=== PATIENT | female | born 1970 | race Caucasian/White ===

== ENCOUNTER → 2017-09-27 | Outpatient (CLI) | payer OTHER ==
[2017-09-27 19:42] LABS: Bilirubin, Urine Neg (Neg); Blood, Urine 1+ (Neg); Glucose Qualitative, Urine Neg (Neg); Ketones, Urine 1+ (Neg); Leukocyte Esterase, Urine Neg (Neg); Nitrite, Urine Neg (Neg); Protein, Urine 1+ (Neg); Specific Gravity, Urine 1.025 (1.003-1.022); Urobilinogen, Urine NORM (Normal)
[2017-09-27 19:48] LABS: Appearance, Urine Clear (Clear); Color, Urine Yellow (P-Yellow)
[2017-09-27 19:49] LABS: Bacteria Not Seen /hpf; Red Blood Cells, Urine Not Seen /hpf (0-2); Squamous Epithelial Cells Not Seen /hpf (Few); White Blood Cells, Urine Not Seen /hpf (0-5)
== END ==
LOC: LAB SHORT 19:25 → LAB 19:25
PROVIDERS: Nurse Practitioner Family
DX: R10.2 Pelvic and perineal pain (principal); R80.0 Isolated proteinuria
CPT/HCPCS: 81001; 87086

== ENCOUNTER 2018-06-03 06:57 | Day surgery (SDC) | payer OTHER ==
[~2018-06-03] VITALS: Ht 154.9 cm; Wt 99.2 kg
[~2018-06-03 06:57] MED LIST: ACET325; Adipex-P37.5 MG; Citalopram HBr40 MG; FLONASE ALLERG9.9 ML; FURO20; HEARTBURN RELI150 M1; IBU800 MG; METFORMIN HCL1000 MG; POTCHL20ER; Robaxin-750750 MG; Solaraze100 GM; VITAMIN D35000 UNIT
--- NOTE | 2018-06-03 14:06 | NUR ---
06/03/18 1406 Trevon Baker LATE ENTRY NURSE ASSISTED PATIENT WALK OUT TO HER RIDE HOME.
== END 2018-06-03 08:55 | disposition home or self-care (01) ==
LOC: ORSCSDS 06:57
PROVIDERS: Surgery
PROC: 0DJD8ZZ Inspection of Lower Intestinal Tract, Via Natural or Artificial Opening Endoscopic (ICD-10-PCS; principal; 2018-06-03 08:00)
DX: Z12.11 Encounter for screening for malignant neoplasm of colon (principal); Z80.0 Family history of malignant neoplasm of digestive organs; E88.81 Metabolic syndrome and other insulin resistance; F41.9 Anxiety disorder, unspecified; I10 Essential (primary) hypertension; E78.5 Hyperlipidemia, unspecified; K21.9 Gastro-esophageal reflux disease without esophagitis; G47.33 Obstructive sleep apnea (adult) (pediatric); Z79.84 Long term (current) use of oral hypoglycemic drugs; Z79.899 Other long term (current) drug therapy; E28.2 Polycystic ovarian syndrome; E66.01 Morbid (severe) obesity due to excess calories; Z68.41 Body mass index [BMI] 40.0-44.9, adult
CPT/HCPCS: 82947; J0330; J1980; J2405; J7120

== ENCOUNTER → 2021-03-03 | Outpatient (CLI) | payer OTHER | LOC: LAB 16:00 → LAB SHORT 16:00 | DX: R30.0 Dysuria (principal) | CPT/HCPCS: 87086 ==

== ENCOUNTER 2021-07-20 09:46 | Day surgery (SDC) | payer OTHER ==
[~2021-07-20] VITALS: Ht 157.5 cm; Wt 95.9 kg
[~2021-07-20 09:46] MED LIST changes: -ACET325; +ACET325 PO; +Adipex-P37.5 MG PO; +BUTALB-ACETAMI1 EAC7 PO; -Citalopram HBr40 MG; +Citalopram HBr40 MG PO; +Crestor20 MG PO; +DICLOFENAC TOP; +ESTRADIOL TOP; -FURO20; +FURO20 PO; +GABA300T24 PO; -IBU800 MG; +IBU800 MG PO; +LORA10ER PO; +LOSA25 PO; -METFORMIN HCL1000 MG; +METFORMIN HCL1000 MG PO; +Norco 5-325 Ta1 EACH PO; +PANT20 PO; -POTCHL20ER; +POTCHL20ER PO; +PROG100 PO; -Robaxin-750750 MG; -Solaraze100 GM; +TOPI50 PO; +VITAMIN D310 MC4 PO; -VITAMIN D35000 UNIT; +[UNRECOGNIZED DRUG - CODE] PO
--- NOTE | 2021-07-20 12:48 | NUR ---
RECIEVED REPORT FROM MARIA FERNANDA CONTEH RN. PT REPORTS FEELING PRESSURE OVER BLADDER AND FEELS LIKE SHE NEEDS TO URINATE. PT AMBULATED TO BATHROOM WITH STEADY GAIT.
--- NOTE | 2021-07-20 13:22 | NUR ---
Patient up to Ambulate independently. Gait steady. Discharge instructions reviewed with patient. Patient verbalizes understanding. Copy given to patient to take home. Patient States Post-Procedure ride home has been arranged. Discharged via wheelchair to private car for ride home. ALL BELONGINGS RETURNED TO PATIENT.
--- NOTE | 2021-07-21 07:22 | NUR ---
07/21/21 0722 Shannan Berumen VERIFICATIONS: EDIT CHART.
== END 2021-07-20 23:16 | disposition home or self-care (01) ==
LOC: ORSCMMR 09:46 → ORD 15:00 → ORSCMMR 23:16
PROVIDERS: Obstetrics & Gynecology
PROC: 0UDB8ZX Extraction of Endometrium, Via Natural or Artificial Opening Endoscopic, Diagnostic (ICD-10-PCS; principal; 2021-07-20 11:00)
DX: N95.0 Postmenopausal bleeding (principal); N85.00 Endometrial hyperplasia, unspecified; I10 Essential (primary) hypertension; G47.33 Obstructive sleep apnea (adult) (pediatric); K21.9 Gastro-esophageal reflux disease without esophagitis; E28.2 Polycystic ovarian syndrome; F41.8 Other specified anxiety disorders; E66.9 Obesity, unspecified; Z68.38 Body mass index [BMI] 38.0-38.9, adult; Z79.84 Long term (current) use of oral hypoglycemic drugs; Z79.899 Other long term (current) drug therapy
CPT/HCPCS: 88305; A9270; J0690; J7120

== ENCOUNTER → 2022-07-16 | Outpatient (CLI) | payer OTHER ==
[2022-07-17 15:59] LABS: U Amphetamine Screen DETECTED; U Barbituate Screen Not Detected; U Benzodiazapine Screen Not Detected; U Buprenorphine Screen Not Detected; U Cannabinoids Screen Not Detected; U Cocaine Screen Not Detected; U Methadone Screen Not Detected; U Methamphetamine Screen Not Detected; U Opiates Screen Not Detected; U Oxycodone Screen Not Detected; U Phencyclidine Screen Not Detected; U Propoxyphene Screen Not Detected
== END ==
LOC: LAB SHORT 17:20
PROVIDERS: Nurse Practitioner Family
DX: G89.4 Chronic pain syndrome (principal)

== ENCOUNTER → 2022-08-16 | Outpatient (CLI) | payer OTHER ==
[2022-08-17 17:11] LABS: U Amphetamine Screen DETECTED; U Barbituate Screen DETECTED; U Benzodiazapine Screen Not Detected; U Buprenorphine Screen Not Detected; U Cannabinoids Screen Not Detected; U Cocaine Screen Not Detected; U Methadone Screen Not Detected; U Methamphetamine Screen Not Detected; U Opiates Screen Not Detected; U Oxycodone Screen Not Detected; U Phencyclidine Screen Not Detected; U Propoxyphene Screen Not Detected
== END ==
LOC: LAB EV 15:54 → LAB SHORT 15:54
PROVIDERS: Nurse Practitioner Family
DX: Z51.81 Encounter for therapeutic drug level monitoring (principal); Z79.899 Other long term (current) drug therapy

== ENCOUNTER → 2022-09-27 | Outpatient (CLI) | payer OTHER | LOC: LAB SHORT 15:51 → LAB 15:51 | DX: R30.0 Dysuria (principal); R35.0 Frequency of micturition | CPT/HCPCS: 87086 ==

== ENCOUNTER → 2023-11-15 | Outpatient (CLI) | payer OTHER | LOC: LAB 16:00 → LAB SHORT 16:00 | DX: L03.90 Cellulitis, unspecified (principal) | CPT/HCPCS: 87070; 87077; 87186; 87205 ==

== ENCOUNTER → 2023-12-13 | Outpatient (CLI) | payer OTHER | LOC: LAB 15:53 → LAB SHORT 15:53 | DX: L03.90 Cellulitis, unspecified (principal) | CPT/HCPCS: 87070; 87205 ==